=== PATIENT | male | born 1970 | race Caucasian/White ===

== ENCOUNTER 2020-01-29 00:14 | Emergency (ER) | payer SELFPAY ==
[~2020-01-29] VITALS: Ht 182.9 cm; Wt 63.5 kg
[~2020-01-29 00:14] MED LIST: AMBIEN5 MG PO; KLONOPIN1 MG PO; LATUDA20 MG PO; MIRTAZAPINE15 MG PO; PAXIL10 MG PO
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
--- NOTE | 2020-01-29 01:00 | NUR ---
Patient verbally abusive to staff and making demands at this time.
[2020-01-29 01:51] LABS: ANION GAP 10.7 mmol/L (8-16); BLOOD UREA NITROGEN < 5 mg/dL (7-26); CALCIUM 8.4 mg/dL (8.4-10.2); CARBON DIOXIDE 27 mmol/L (22-29); CHLORIDE 107 mmol/L (98-107); CREATININE, SERUM 0.89 mg/dL (0.72-1.25); EST GLOMERULAR FILTRATION RATE > 60 ML/MIN (60-); GLUCOSE 98 mg/dL (74-118); SODIUM 142 mmol/L (136-145)
[2020-01-29 01:58] LABS: BUN/CREATININE RATIO 6 (6-25); POTASSIUM 2.7 mmol/L (3.5-5.1)
[2020-01-29] MEDS ORDERED: POTASSIUM CHLORIDE 20 MEQ TAB CR PO STA (01:59)
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
--- NOTE | 2020-01-29 02:17 | NUR ---
Patient refusing pills at this time and requesting IV potassium. ER MD notified.
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
[2020-01-29] MEDS ORDERED: POTASSIUM CHLORIDE 20MEQ/15ML UDC ONE (02:28)
[2020-01-29] MEDS ORDERED: POTASSIUM CHLORIDE 20MEQ/15ML UDC PO ONE (02:30)
[2020-01-29 02:33] VITALS: BP 132/85
--- NOTE | 2020-01-29 02:47 | NUR ---
Coupon for oral potassium given to patient.
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
== END 2020-01-29 02:45 | disposition home or self-care (01) ==
LOC: ER 00:20
DX: S00.83XA Contusion of other part of head, initial encounter (principal); S16.1XXA Strain of muscle, fascia and tendon at neck level, initial encounter; Y04.0XXA Assault by unarmed brawl or fight, initial encounter; E87.6 Hypokalemia
CPT/HCPCS: 36415; 70450; 70486; 71045; 72125; 80048; 83735; 99284